=== PATIENT | male | born 1960 | race Caucasian/White ===

== ENCOUNTER 2018-10-26 13:51 | Inpatient (IN) | payer MEDICAID, OTHER ==
[~2018-10-26] VITALS: Ht 170.2 cm; Wt 86.1 kg
[~2018-10-26 13:51] MED LIST: ALBU18HF INH; AMLO10TA4 PO; AMOX-291 PO; CARB1DRO OP; CEFD300C37 PO; CLIN300C8 PO; CYCL1DRO OP; DOXY100T PO; GUAI5SYR PO; HYDR-3237 PO; LEVO500T8 PO; LISI-167 PO; OMEP-110 PO; POLY17PO5 PO
--- NOTE | 2018-10-26 14:11 | NUR ---
FIRST CONTACT WITH PT. Per pt, "I had a burn on my hand (right first finger knuckle proximal to anterior of top of hand) about a week ago. It scabbed. A couple of days ago the scab fell off, I was working and hand my hand in a bucket of shit, without gloves on, and yesterday it started swelling." NADN. Pt denies cp, sob, n/v/d. CMS intact. Erythema and swelling observed of pt's left hand. Call light within reach. X-ray at bedside.
[2018-10-26] MEDS ORDERED: SODIUM CHLORIDE FLUSH 10ML SYR IVF ONE (14:30)
[2018-10-26] MEDS ORDERED: PIPERACILLIN/TAZO/PMX 3.375GM 50 ML IVPB ONE (15:00)
[2018-10-26] MEDS ORDERED: VANCOMYCIN PER PHARMACY MC ONE (15:00)
[2018-10-26 15:07] LABS: BASOPHILS # (AUTO) 0.01 x10^3/uL (0-0.1); BASOPHILS % (AUTO) 0 % (0-1); EOSINOPHILS # (AUTO) 0.23 x10^3/uL (0-0.4); EOSINOPHILS % (AUTO) 2 % (1-7); LYMPHOCYTES # (AUTO) 0.96 x10^3/uL (1-3.4); LYMPHOCYTES % (AUTO) 9 % (22-44); MD NO; MEAN CORPUSCULAR HEMOGLOBIN 30.4 pg (27.5-34.5); MEAN CORPUSCULAR HGB CONC 33.7 g/dL (33.2-36.2); MEAN CORPUSCULAR VOLUME 90.2 fL (81-97); MEAN PLATELET VOLUME 8.3 fL (7.4-10.4); MONOCYTES # (AUTO) 1.01 x10^3/uL (0.2-0.8); MONOCYTES % (AUTO) 9 % (2-9); NEUTROPHILS # (AUTO) 8.61 x10^3/uL (1.8-6.8); NEUTROPHILS % (AUTO) 80 % (42-75); PLATELET COUNT 197 x10^3/uL (130-400); RED BLOOD COUNT 5.71 x10^6/uL (4.38-5.82); RED CELL DISTRIBUTION WIDTH 13.5 % (9.4-14.8)
[2018-10-26] MEDS ORDERED: LISI5TAB7 PO (15:17)
[2018-10-26 15:18] LABS: ALBUMIN 3.6 g/dL (3.4-5.0); ANION GAP 6 mmol/L (5-15); CHLORIDE 109 mmol/L (98-107); CREATININE 1.04 mg/dL (0.7-1.3)
[2018-10-26] MEDS ORDERED: PHARMACOKINETIC CONSULTATION MC ONE ×2 (15:30→18:30)
[2018-10-26] MEDS ORDERED: VANCOMYCIN 1,800 MG in SODIUM CHLORIDE 0.9% 250 ML IV ONE (15:30)
--- NOTE | 2018-10-26 15:43 | NUR ---
Pt taken to MRI prior to ultrasound PIV could be established. MRI called questioning if pt had PIV. MRI returning pt to room so ultrasound PIV can be placed.
--- NOTE | 2018-10-26 15:59 | NUR ---
Ultrasound PIV established by ED kennel staff member. MRI called. MRI to take pt. Pt to start medications per EMAR upon returning from MRI.
--- NOTE | 2018-10-26 16:49 | NUR ---
Pt away to imaging at this time. Pt left approximately 20 minutes ago. Unable to start medications per EMAR at this time as pt is not in ED room.
[2018-10-26] MEDS ORDERED: PIPERACILLIN/TAZO/PMX 3.375GM 50 ML ONE (17:06)
--- NOTE | 2018-10-26 17:13 | NUR ---
Pt back to room from MRI. PIV antibiotics started per EMAR. ROBLEDO. Pt appreciative. Call light within reach. Pt reconnected to NIBP, continous pulse ox, and school lunch monitor.
--- NOTE | 2018-10-26 17:36 | NUR ---
Provided report to ALISON Brand. All questions answered. Pt ready to transfer to floor from ED.
--- NOTE | 2018-10-26 17:44 | NUR ---
PIV medications infusing per EMAR. ED MD at bedside talking to pt about plan of care. Pt states verbal understanding. NADN. Call light within reach.
--- NOTE | 2018-10-26 17:48 | NUR ---
Pt transfered to floor from ED with PIV antibiotics infusing per EMAR. ROBLEDO.
[2018-10-26] MEDS ORDERED: DOCUSATE 100 MG CAPSULE PO PRN (18:00)
[2018-10-26] MEDS ORDERED: IBUPROFEN 600 MG TABLET PO PRN (18:00)
[2018-10-26] MEDS ORDERED: PROMETHAZINE 25 MG/ML, 1ML IM PRN (18:00)
[2018-10-26] MEDS ORDERED: ONDANSETRON 2MG/ML, 2ML IVPush PRN (18:00)
[2018-10-26] MEDS ORDERED: BISACODYL 10 MG SUPP PR PRN (18:00)
[2018-10-26] MEDS ORDERED: morphine SULFATE 10 MG/ML, 1ML IVPush PRN (18:00)
[2018-10-26] MEDS ORDERED: VANCOMYCIN PER PHARMACY MC PRN (18:00)
[2018-10-26] MEDS ORDERED: hydrALAzine 20 MG/ML, 1ML IVPush PRN (18:00)
[2018-10-26] MEDS ORDERED: POLYETHYLENE GLYCOL 17 GM PACKET PO PRN (18:00)
[2018-10-26] MEDS ORDERED: ACETAMINOPHEN 325 MG TABLET PO PRN ×2 (18:00→20:00)
[2018-10-26 18:07] LABS: HCT (SEDRATE) 51.5 % (39.2-51.8)
[2018-10-26 18:15] LABS: FREE T4 (FREE THYROXINE) 0.95 ng/dL (0.76-1.46); THYROID STIMULATING HORMONE 1.17 mIU/L (0.358-3.740)
[2018-10-26 18:22] LABS: HEMOGLOBIN A1C 5.5 % (4.2-6.3)
[2018-10-26] MEDS ORDERED: PHARMACOKINETIC MONITORING MC PRN (18:30)
[2018-10-26] MEDS ORDERED: FENTANYL PF 250 MCG/5ML ONE (19:08)
[2018-10-26] MEDS ORDERED: MIDAZOLAM 1 MG/ML, 2ML ONE (19:08)
[2018-10-26] MEDS ORDERED: DEXAMETHASONE 4 MG/ML, 1ML ONE (19:49)
[2018-10-26] MEDS ORDERED: ONDANSETRON 2MG/ML, 2ML ONE (19:49)
[2018-10-26] MEDS ORDERED: PROPOFOL 10 MG/ML, 20ML ONE (19:49)
[2018-10-26] MEDS ORDERED: ALBUTEROL/IPRATROPIUM 2.5MG/0.5MG, 3 ML NPPB PRN (20:00)
[2018-10-26] MEDS ORDERED: FENTANYL PF 100 MCG/2ML IV PRN (20:00)
[2018-10-26] MEDS ORDERED: hydrALAzine 20 MG/ML, 1ML IV PRN (20:00)
[2018-10-26] MEDS ORDERED: HYDROmorphone 2 MG/ML, 1ML IVPush PRN (20:00)
[2018-10-26] MEDS ORDERED: METOPROLOL 1 MG/ML, 5ML IV PRN (20:00)
[2018-10-26] MEDS ORDERED: SCOPOLAMINE PATCH, 1.5MG PATCH.TD72 TD PRN (20:00)
[2018-10-26] MEDS ORDERED: PROMETHAZINE 25 MG/ML, 1ML IV PRN (20:00)
[2018-10-26] MEDS ORDERED: MEPERIDINE/PF 25MG/0.5ML IVPush PRN (20:00)
[2018-10-26] MEDS ORDERED: OXYcodone 5 MG/5 ML ORAL.SOL UDC PO PRN (20:00)
[2018-10-26] MEDS ORDERED: ONDANSETRON 2MG/ML, 2ML IV PRN (20:00)
[2018-10-26] MEDS ORDERED: MIDAZOLAM 1 MG/ML, 2ML IV PRN (20:00)
[2018-10-26] MEDS ORDERED: ACETAMINOPHEN 650 MG/20.3 ML UDC ONE (20:30)
[2018-10-26] MEDS ORDERED: OXYcodone 5 MG/5 ML ORAL.SOL UDC ONE (20:30)
[2018-10-26 20:45] VITALS: BP 145/75
[2018-10-26] MEDS: SODIUM CHLORIDE 0.9% 1,000 ML IV SCH (20:54)
[2018-10-26 21:06] VITALS: BP 145/75
[2018-10-26] MEDS: PIPERACILLIN/TAZO/PMX 3.375GM 50 ML IV SCH (23:22)
[2018-10-27 01:15] VITALS: BP 126/79
[2018-10-27] MEDS: SODIUM CHLORIDE 0.9% 1,000 ML IV SCH (04:42)
[2018-10-27] MEDS: PIPERACILLIN/TAZO/PMX 3.375GM 50 ML IV SCH ×4 (04:44→22:44)
[2018-10-27 05:32] LABS: BASOPHILS # (AUTO) 0.02 x10^3/uL (0-0.1); BASOPHILS % (AUTO) 0 % (0-1); EOSINOPHILS # (AUTO) 0.01 x10^3/uL (0-0.4); EOSINOPHILS % (AUTO) 0 % (1-7); LYMPHOCYTES % (AUTO) 6 % (22-44); MD NO; MEAN CORPUSCULAR HEMOGLOBIN 30.5 pg (27.5-34.5); MEAN CORPUSCULAR HGB CONC 33.4 g/dL (33.2-36.2); MEAN CORPUSCULAR VOLUME 91.3 fL (81-97); MEAN PLATELET VOLUME 8.3 fL (7.4-10.4); MONOCYTES # (AUTO) 0.47 x10^3/uL (0.2-0.8); MONOCYTES % (AUTO) 4 % (2-9); NEUTROPHILS # (AUTO) 11.15 x10^3/uL (1.8-6.8); NEUTROPHILS % (AUTO) 90 % (42-75); PLATELET COUNT 178 x10^3/uL (130-400); RED BLOOD COUNT 5.63 x10^6/uL (4.38-5.82); RED CELL DISTRIBUTION WIDTH 13.8 % (9.4-14.8)
[2018-10-27 05:44] LABS: ALBUMIN 3.1 g/dL (3.4-5.0); ANION GAP 5 mmol/L (5-15); CALCIUM 8.9 mg/dL (8.5-10.1); CHLORIDE 110 mmol/L (98-107)
[2018-10-27 05:48] LABS: ALANINE AMINOTRANSFERASE 26 U/L (12-78); ALKALINE PHOSPHATASE 73 U/L (45-117); CHOL/HDL RATIO 2.1; CHOLESTEROL, TOTAL 131 mg/dL (140-239); CREATININE 1.23 mg/dL (0.7-1.3); HDL CHOL % 47 % (26-37); HDL CHOLESTEROL (DIRECT) 62 mg/dL (40-60); LDL CHOLESTEROL,CALCULATED 56 mg/dL (54-169); LDL/HDL RATIO 0.9 (0.5-3.0); TOTAL PROTEIN 7.1 g/dL (6.4-8.2); TRIGLYCERIDES 67 mg/dL (50-200); VLDL CHOLESTEROL 13 mg/dL (0-25)
[2018-10-27 07:25] VITALS: BP 108/63
[2018-10-27] MEDS: LISINOPRIL 5 MG TABLET PO SCH (07:47)
[2018-10-27] MEDS ORDERED: OMNIPAQUE 350 MG/ML, 75ML BOTTLE ONE (10:24)
[2018-10-27] MEDS: VANCOMYCIN 1,700 MG in SODIUM CHLORIDE 0.9% 250 ML IV SCH (12:08)
[2018-10-27 12:27] VITALS: BP 145/78
[2018-10-27 19:13] VITALS: BP 122/68
[2018-10-27] MEDS: ONDANSETRON ODT 4 MG PO PRN (19:31)
[2018-10-28 02:02] VITALS: BP 123/75
[2018-10-28] MEDS: PIPERACILLIN/TAZO/PMX 3.375GM 50 ML IV SCH ×4 (04:48→23:11)
[2018-10-28] MEDS: VANCOMYCIN 1,700 MG in SODIUM CHLORIDE 0.9% 250 ML IV SCH ×2 (05:34→23:45)
[2018-10-28] MEDS: ONDANSETRON ODT 4 MG PO PRN ×2 (05:34→09:10)
[2018-10-28 08:44] VITALS: BP 138/75
[2018-10-28] MEDS: LISINOPRIL 5 MG TABLET PO SCH (09:04)
[2018-10-28 13:04] VITALS: BP 116/68
[2018-10-28 15:59] VITALS: BP 143/64
[2018-10-28] MEDS ORDERED: LORazepam 0.5MG TABLET PO PRN (16:00)
[2018-10-28] MEDS ORDERED: LORazepam 2 MG/ML, 1ML IV PRN ×5 (16:00)
[2018-10-28] MEDS ORDERED: LORazepam 1MG TABLET PO PRN ×4 (16:00)
[2018-10-28 18:55] VITALS: BP 155/94
[2018-10-29 02:25] VITALS: BP 119/72
[2018-10-29] MEDS: PIPERACILLIN/TAZO/PMX 3.375GM 50 ML IV SCH ×4 (05:18→22:46)
[2018-10-29] MEDS: LISINOPRIL 5 MG TABLET PO SCH (08:32)
[2018-10-29] MEDS ORDERED: BEER 12 OZ CAN PO SCH (09:57)
[2018-10-29] MEDS: BEER 12 OZ CAN PO SCH ×2 (12:00→16:46)
[2018-10-29 13:24] VITALS: BP 135/87
[2018-10-29] MEDS: VANCOMYCIN 1,700 MG in SODIUM CHLORIDE 0.9% 250 ML IV SCH (17:23)
[2018-10-29 19:44] VITALS: BP 129/80
[2018-10-29] MEDS: HYDROcodone/APAP 5/325 TABLET PO PRN (22:23)
[2018-10-30 03:55] VITALS: BP 155/100
[2018-10-30] MEDS: HYDROcodone/APAP 5/325 TABLET PO PRN (04:59)
[2018-10-30] MEDS: PIPERACILLIN/TAZO/PMX 3.375GM 50 ML IV SCH ×2 (04:59→11:07)
[2018-10-30 07:01] VITALS: BP 155/108
[2018-10-30] MEDS: BEER 12 OZ CAN PO SCH ×2 (09:16→12:20)
[2018-10-30] MEDS: LISINOPRIL 5 MG TABLET PO SCH (09:16)
[2018-10-30 09:17] VITALS: BP 154/98
[2018-10-30] MEDS: VANCOMYCIN 1,700 MG in SODIUM CHLORIDE 0.9% 250 ML IV SCH (12:20)
[2018-10-30 14:51] VITALS: BP 156/105
[2018-10-30] MEDS ORDERED: AMOX1TAB64 PO (15:01)
[2018-10-30] MEDS ORDERED: IBUP-1221 PO (15:10)
[2018-10-30] MEDS ORDERED: TRAM-47 PO (15:10)
[2018-10-30] MEDS ORDERED: LISINOPRIL 5 MG TABLET PO SCH (15:30)
[2018-10-30 16:00] VITALS: BP 136/70
[2018-10-31] MEDS ORDERED: LINE600T37 PO (12:05)
== END 2018-10-30 16:46 | disposition home or self-care (01) | DRG 580 ==
LOC: ED 15:15 → EDIP 17:32 → 3NE 18:09
PROVIDERS: ADMIT Internal Medicine; ATTEND Internal Medicine
PROC: 0J9K0ZZ Drainage of Left Hand Subcutaneous Tissue and Fascia, Open Approach (ICD-10-PCS; principal; 2018-10-26 19:15)
DX: L02.512 Cutaneous abscess of left hand (principal); F10.239 Alcohol dependence with withdrawal, unspecified; L03.114 Cellulitis of left upper limb; E44.0 Moderate protein-calorie malnutrition; F12.10 Cannabis abuse, uncomplicated; I10 Essential (primary) hypertension; R91.1 Solitary pulmonary nodule; Z80.1 Family history of malignant neoplasm of trachea, bronchus and lung; Z80.3 Family history of malignant neoplasm of breast; Z86.14 Personal history of Methicillin resistant Staphylococcus aureus infection; Z87.891 Personal history of nicotine dependence; Z87.01 Personal history of pneumonia (recurrent); Z68.29 Body mass index [BMI] 29.0-29.9, adult; Z71.51 Drug abuse counseling and surveillance of drug abuser
CPT/HCPCS: 36415; 71260; 80048; 80053; 80061; 80202; 82040; 83036; 83605; 83735; 84439; 84443; 85025; 85651; 86140; 87040; 87070; 87075; 87077; 87186; 87205; 96365; 99285; G0378; J1100; J2250; J2405; J2543; J2704; J3010; J3370; Q0162; Q9967; J2060; J7030; J7050